=== PATIENT | male | born 1950 | race Two or more races ===

== ENCOUNTER 2020-03-22 11:08 | Inpatient (IN) | payer OTHER, MEDICAID ==
[~2020-03-22] VITALS: Ht 182.9 cm; Wt 64.5 kg
[2020-03-22 14:28] LABS: Basophils # (auto) 0.1 10 ^3/uL (0-0.2); Basophils % (auto) 0.9 % (0.0-2.0); Eosinophils # (auto) 0 10 ^3/uL (0-0.8); Lymphocytes # (auto) 1.3 10 ^3/uL (0.4-5.4); Mean Corpuscular Hgb Conc. 32.8 g/dL (32.0-36.0); Monocytes # (auto) 0.7 10 ^3/uL (0-1.3); Nucleated Red Blood Cells % 0.1 %
[2020-03-22 14:30] LABS: Eosinophils % (auto) 0.6 % (0.0-7.0); Hematocrit 40.5 % (41.0-53.0); Hemoglobin 13.3 g/dL (13.5-17.5); Lymphocytes % (auto) 17.4 % (10.0-50.0); Mean Corpuscular Hemoglobin 25.5 pg (28.0-32.0); Mean Corpuscular Volume 77.6 fL (80.0-100.0); Monocytes % (auto) 8.8 % (0.0-12.0); Neutrophils # (auto) 5.5 10 ^3/uL (1.6-8.6); Neutrophils % (auto) 72.3 % (37.0-80.0); Platelet Count (auto) 295 10^3/uL (140-450); Red Blood Cells 5.22 10^6/uL (4.5-5.90); Red Cell Distribution Width 18.2 % (11.8-14.3); White Blood Cell 7.6 10^3/uL (4.4-10.8)
[2020-03-22 14:49] LABS: Albumin 2.8 g/dL (3.4-5.0); Calcium 8.2 mg/dL (8.5-10.1)
[2020-03-22 14:56] LABS: BUN/Creatinine Ratio 17.5; Bilirubin, Total 1.2 mg/dL (0.2-1.0); Total Protein 8.3 g/dL (6.4-8.2)
[2020-03-22] MEDS ORDERED: AZITHROMYCIN 500MG/ 250ML 250 ML IV ONE (17:15)
[2020-03-22] MEDS ORDERED: IPRATROPIUM BROM 0.5 MG/2.5ML INH SOL NEB ONE (17:15)
[2020-03-22] MEDS ORDERED: BUDESONIDE (INHALATION) 0.5 MG/2 ML NEB NEB ONE (17:15)
[2020-03-22] MEDS ORDERED: NITROGLYCERIN 0.4 MG SL TAB SL PRN ×3 (17:15→19:00)
[2020-03-22] MEDS ORDERED: ENOXAPARIN SOD 40 MG/0.4 ML SYRINGE SC ONE (17:15)
[2020-03-22] MEDS ORDERED: MORPHINE SULF INJ 2 MG/ML SYRINGE 1ML IV PRN ×3 (17:15→18:45)
[2020-03-22] MEDS ORDERED: OMEP-434 PO (17:30)
[2020-03-22] MEDS ORDERED: ACET-1304 PO (17:30)
[2020-03-22] MEDS ORDERED: methylPREDNISolone SOD SUCC 125 MG/2 ML VL IV ONE (18:45)
[2020-03-22] MEDS ORDERED: ONDANSETRON HCL 4 MG/2 ML VIAL IV PRN ×2 (18:45→19:00)
[2020-03-22] MEDS ORDERED: PNEUMOCOCCAL VACC POLYS 25 MCG/0.5 ML VIAL IM ONE (18:45)
[2020-03-22] MEDS ORDERED: ACETAMINOPHEN 325 MG TAB PO PRN (18:45)
[2020-03-22] MEDS ORDERED: DOCUSATE SOD 100 MG CAP PO PRN (18:45)
[2020-03-22] MEDS ORDERED: SODIUM CHLORIDE 0.9% 1,000 ML IV SCH (18:45)
[2020-03-22] MEDS ORDERED: HYDROcodone-ACET 5/325MG TAB PO PRN (18:45)
[2020-03-22] MEDS ORDERED: INFLUENZA QUAD 2020-2021 0.5 ML SYRG IM ONE (18:45)
[2020-03-22] MEDS ORDERED: LORazepam 0.5 MG TAB PO PRN ×2 (18:45→19:00)
[2020-03-22] MEDS ORDERED: FUROSEMIDE 100 MG/10ML VIAL IV ONE (19:00)
[2020-03-22] MEDS ORDERED: ALUM & MAG HYDROX-SIMETH LIQ(MAALOX) 30 ML PO ONE (19:00)
[2020-03-22] MEDS ORDERED: MORPHINE SULFATE 4 MG/ML SYR/VIAL IV PRN (19:00)
[2020-03-22 19:06] VITALS: BP 112/75
[2020-03-22 20:04] LABS: INR 1.23 (0.9-1.15); Partial Thromboplastin Time 32.7 sec (23.0-31.2)
[2020-03-22 20:15] LABS: Cholesterol 122 mg/dL (< 200); HDL Cholesterol 41 mg/dL (40-59); LDL Cholesterol 79 mg/dL (< 100); Triglycerides 65 mg/dL (< 150)
[2020-03-22 20:57] LABS: Urine Bacteria FEW /hpf (None Seen); Urine Blood Negative /uL (Negative); Urine Specific Gravity 1.022 (1.001-1.035); Urine WBC <1 /hpf (0 - 3)
[2020-03-22 21:09] LABS: Alcohol, Urine < 3.0 mg/dL (0-10); Amphetamine Screen, Urine NEGATIVE (NEGATIVE); Barbiturate Scree,Urine NEGATIVE (NEGATIVE); Benzodiazephine Screen, Urine NEGATIVE (NEGATIVE); Cannabinoid Screen, Urine NEGATIVE (NEGATIVE); Cocaine Screen, Urine NEGATIVE (NEGATIVE); Opiate Scree,Urine NEGATIVE (NEGATIVE); Phencyclidine Screen, Urine NEGATIVE (NEGATIVE)
[2020-03-22] MEDS ORDERED: IPRATROPIUM BROM 0.5 MG/2.5ML INH SOL NEB SCH (22:00)
[2020-03-22] MEDS: BUDESONIDE (INHALATION) 0.5 MG/2 ML NEB NEB SCH (22:00)
[2020-03-22] MEDS: CARVEDILOL 3.125 MG TAB PO SCH (22:11)
[2020-03-22] MEDS: ATORVASTATIN 20 MG TAB PO SCH (22:12)
[2020-03-23] MEDS: FUROSEMIDE 40 MG/4 ML VIAL IV SCH ×2 (06:00→18:00)
[2020-03-23 07:02] LABS: Albumin 2.6 g/dL (3.4-5.0); Calcium 8.4 mg/dL (8.5-10.1)
[2020-03-23 07:05] LABS: BUN/Creatinine Ratio 20.4; Bilirubin, Total 1.2 mg/dL (0.2-1.0); Total Protein 7.9 g/dL (6.4-8.2)
[2020-03-23] MEDS ORDERED: ENOXAPARIN SOD 40 MG/0.4 ML SYRINGE SC SCH (10:00)
[2020-03-23] MEDS: LISINOPRIL 5 MG TAB PO SCH (10:00)
[2020-03-23] MEDS: BUDESONIDE (INHALATION) 0.5 MG/2 ML NEB NEB SCH ×2 (10:00→19:56)
[2020-03-23] MEDS: CARVEDILOL 3.125 MG TAB PO SCH ×2 (10:00→21:41)
[2020-03-23] MEDS: levoFLOXacin 500MG 100 ML IV SCH (10:04)
[2020-03-23] MEDS: ASPirin 81 mg TAB PO SCH (10:05)
[2020-03-23] MEDS: ENOXAPARIN SOD 40 MG/0.4 ML SYRINGE SC SCH (10:06)
[2020-03-23 16:49] VITALS: BP 92/59
--- NOTE | 2020-03-23 19:45 | NUR ---
assumed care, pt. awake, alert and oriented, no c/o pain, not in distress.
[2020-03-23] MEDS: IPRATROPIUM BROM 0.5 MG/2.5ML INH SOL NEB PRN (19:56)
[2020-03-23] MEDS: ATORVASTATIN 20 MG TAB PO SCH (21:41)
[2020-03-23] MEDS: ALUM & MAG HYDROX-SIMETH LIQ(MAALOX) 30 ML PO PRN (21:50)
[2020-03-23 22:00] VITALS: BP 92/66
[2020-03-24 05:00] VITALS: BP 92/64
[2020-03-24] MEDS: FUROSEMIDE 40 MG/4 ML VIAL IV SCH ×2 (05:37→18:00)
[2020-03-24] MEDS: BUDESONIDE (INHALATION) 0.5 MG/2 ML NEB NEB SCH ×2 (06:26→19:30)
[2020-03-24 06:39] LABS: Albumin 2.6 g/dL (3.4-5.0); Calcium 8.6 mg/dL (8.5-10.1); Potassium 4.5 mmol/L (3.5-5.1)
[2020-03-24 06:43] LABS: Bilirubin, Total 0.9 mg/dL (0.2-1.0); Total Protein 7.6 g/dL (6.4-8.2)
[2020-03-24 06:47] LABS: Basophils # (auto) 0 10 ^3/uL (0-0.2); Eosinophils # (auto) 0 10 ^3/uL (0-0.8); Folate (Folic Acid) 10.88 ng/mL (5.38-24); Hemoglobin 13.1 g/dL (13.5-17.5); Lymphocytes # (auto) 1.1 10 ^3/uL (0.4-5.4)
[2020-03-24 06:51] LABS: Hematocrit 41.7 % (41.0-53.0); Lymphocytes % (auto) 7.5 % (10.0-50.0); Mean Corpuscular Hemoglobin 24.5 pg (28.0-32.0); Mean Corpuscular Hgb Conc. 31.5 g/dL (32.0-36.0); Mean Corpuscular Volume 77.7 fL (80.0-100.0); Monocytes # (auto) 0.9 10 ^3/uL (0-1.3); Monocytes % (auto) 6.1 % (0.0-12.0); Neutrophils # (auto) 12.7 10 ^3/uL (1.6-8.6); Neutrophils % (auto) 86.4 % (37.0-80.0); Platelet Count (auto) 322 10^3/uL (140-450); Red Blood Cells 5.36 10^6/uL (4.5-5.90); Red Cell Distribution Width 18.2 % (11.8-14.3); White Blood Cell 14.7 10^3/uL (4.4-10.8)
--- NOTE | 2020-03-24 08:00 | NUR ---
Opening Shift Note Assumed care of patient, awake and alert.Patient on 2L oxygen via NC, breath sounds even and unlabored. No S/S of distress/SOB or pain. Instructed on POC and to call for assist PRN. Bed at lowest locked position and call light withinreach. Will continue to monitor for changes Q1hr and PRN.
[2020-03-24 09:00] VITALS: BP 98/62
[2020-03-24] MEDS: levoFLOXacin 500MG 100 ML IV SCH (10:00)
[2020-03-24] MEDS: ASPirin 81 mg TAB PO SCH (10:00)
[2020-03-24] MEDS: methylPREDNISolone SOD SUCC 40 MG/ML VL IV SCH (10:00)
[2020-03-24] MEDS: LISINOPRIL 5 MG TAB PO SCH (10:00)
[2020-03-24] MEDS: CARVEDILOL 3.125 MG TAB PO SCH ×2 (10:00→22:04)
[2020-03-24] MEDS ORDERED: AZITHROMYCIN 500MG/ 250ML 250 ML IV SCH (10:00)
[2020-03-24] MEDS: ENOXAPARIN SOD 40 MG/0.4 ML SYRINGE SC SCH (10:00)
--- NOTE | 2020-03-24 10:04 | NUR ---
Radiology per Radiologist, report shows strong probability for pulmonary embolism. paged Hospitalist. awaiting call back.
--- NOTE | 2020-03-24 10:13 | NUR ---
updated patient's daughter after password was provided.
--- NOTE | 2020-03-24 10:57 | NUR ---
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
[2020-03-24] MEDS ORDERED: fentaNYL CITRATE 100 MCG/2 ML VL IV ONE (11:15)
[2020-03-24] MEDS ORDERED: MIDAZOLAM HCL 1MG/1ML-2 ML VIAL IV ONE (11:15)
[2020-03-24] MEDS ORDERED: LIDOCAINE VISCOUS 2% 15ML UD PO ONE (11:15)
[2020-03-24] MEDS ORDERED: ONDANSETRON HCL 4 MG/2 ML VIAL IV ONE (12:00)
--- NOTE | 2020-03-24 12:12 | NUR ---
D/C Planning Per social service for home oxygen at 3 l/min. Faxed clinical information to [facility] and [facility]. Per Amy with [facility] oxygen portable to be deliver to bedside between 11:30am-15:00 and concentrate oxygen to home. Obtain authorization from [facility] [id number].
--- NOTE | 2020-03-24 13:47 | NUR ---
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 NO SIGNS OF DISTRESS, SOB OR PAIN. BED IN LOWEST POSITION, CALL LIGHT WITHIN REACH.
--- NOTE | 2020-03-24 13:50 | NUR ---
Oxygen tank patients oxygen tank delivered to room.
[2020-03-24] MEDS: ALUM & MAG HYDROX-SIMETH LIQ(MAALOX) 30 ML PO PRN ×2 (14:00→22:11)
--- NOTE | 2020-03-24 14:21 | NUR ---
Nutrition Assessment/Consult Notes Please refer to link for full assessment notes. Est Energy needs: 8824-2825 kcals (20-23 kcal/kgBW) Est Protein needs: 81-90 gms/day (1.0-1.1 gm/kgBW) Will continue to monitor and reassess prn. Addendum: 03/24/20 at [address] Amended: Links added.
--- NOTE | 2020-03-24 15:30 | NUR ---
Dr. Arellano at bedside.
[2020-03-24] MEDS ORDERED: IOHEXOL 350 MG/ML 100ML IJ ONE (17:09)
--- NOTE | 2020-03-24 19:17 | NUR ---
Closing note Patient is comfortably resting in bed, no s/s of distress noted/stated, patient on 2L NC and breath sounds even and unlabored.Bed at lowest locked position and call light within reach. Care endorsed to DARRELL Smith.
--- NOTE | 2020-03-24 19:30 | NUR ---
Opening Shift Note Assumed care of patient, awake and alert. No S/S of distress/SOB or pain. Instructed on POC and to call for assist PRN, will continue to monitor for changes Q1hr and PRN.
[2020-03-24 20:00] VITALS: BP 114/76
[2020-03-24] MEDS ORDERED: ENOXAPARIN SOD 60 MG/0.6 ML SYRINGE SC SCH (22:00)
[2020-03-24] MEDS: ENOXAPARIN SOD 60 MG/0.6 ML SYRINGE SC SCH (22:04)
[2020-03-24] MEDS: ATORVASTATIN 20 MG TAB PO SCH (22:04)
[2020-03-25] MEDS: FUROSEMIDE 40 MG/4 ML VIAL IV SCH ×2 (06:30→18:00)
[2020-03-25 07:08] LABS: Basophils # (auto) 0 10 ^3/uL (0-0.2); Eosinophils # (auto) 0 10 ^3/uL (0-0.8); Mean Corpuscular Volume 78.1 fL (80.0-100.0); Monocytes # (auto) 0.7 10 ^3/uL (0-1.3); Nucleated Red Blood Cells % 0.1 %; Red Cell Distribution Width 18.4 % (11.8-14.3)
[2020-03-25 07:12] LABS: Basophils % (auto) 0.1 % (0.0-2.0); Hematocrit 43.2 % (41.0-53.0); Hemoglobin 13.8 g/dL (13.5-17.5); Lymphocytes # (auto) 1.4 10 ^3/uL (0.4-5.4); Lymphocytes % (auto) 11.4 % (10.0-50.0); Monocytes % (auto) 5.6 % (0.0-12.0); Neutrophils # (auto) 10.4 10 ^3/uL (1.6-8.6); Neutrophils % (auto) 82.9 % (37.0-80.0); Platelet Count (auto) 335 10^3/uL (140-450); Red Blood Cells 5.53 10^6/uL (4.5-5.90); White Blood Cell 12.6 10^3/uL (4.4-10.8)
[2020-03-25 07:27] LABS: Potassium 3.9 mmol/L (3.5-5.1)
[2020-03-25 07:46] LABS: BUN/Creatinine Ratio 31.1; Calcium 8.7 mg/dL (8.5-10.1)
[2020-03-25 08:00] VITALS: BP 112/68
[2020-03-25] MEDS: LISINOPRIL 5 MG TAB PO SCH (08:45)
[2020-03-25 09:04] VITALS: BP 99/67
[2020-03-25] MEDS: methylPREDNISolone SOD SUCC 40 MG/ML VL IV SCH (09:49)
[2020-03-25] MEDS: ENOXAPARIN SOD 60 MG/0.6 ML SYRINGE SC SCH ×2 (09:50→22:02)
[2020-03-25] MEDS: ASPirin 81 mg TAB PO SCH (09:50)
[2020-03-25] MEDS: CARVEDILOL 3.125 MG TAB PO SCH ×2 (09:50→22:03)
[2020-03-25] MEDS: levoFLOXacin 500MG 100 ML IV SCH (09:51)
[2020-03-25] MEDS: IPRATROPIUM BROM 0.5 MG/2.5ML INH SOL NEB PRN ×2 (10:55→19:21)
[2020-03-25] MEDS: BUDESONIDE (INHALATION) 0.5 MG/2 ML NEB NEB SCH ×2 (10:55→19:22)
[2020-03-25 13:00] VITALS: BP 94/63
[2020-03-25] MEDS: ALUM & MAG HYDROX-SIMETH LIQ(MAALOX) 30 ML PO PRN ×2 (14:00→19:21)
[2020-03-25 16:39] VITALS: BP 88/59
[2020-03-25 20:00] VITALS: BP 102/65
[2020-03-25 21:29] VITALS: BP 94/63
[2020-03-25] MEDS: ATORVASTATIN 20 MG TAB PO SCH (22:02)
[2020-03-26] MEDS: FUROSEMIDE 40 MG/4 ML VIAL IV SCH ×2 (06:25→18:30)
[2020-03-26 08:06] VITALS: BP 106/71
[2020-03-26] MEDS: BUDESONIDE (INHALATION) 0.5 MG/2 ML NEB NEB SCH ×2 (09:54→19:11)
[2020-03-26] MEDS: ASPirin 81 mg TAB PO SCH (10:35)
[2020-03-26] MEDS: methylPREDNISolone SOD SUCC 40 MG/ML VL IV SCH (10:35)
[2020-03-26] MEDS: PANTOPRAZOLE 40 MG TAB PO SCH (10:36)
[2020-03-26] MEDS: CARVEDILOL 3.125 MG TAB PO SCH ×2 (10:38→22:14)
[2020-03-26] MEDS: LISINOPRIL 5 MG TAB PO SCH (10:39)
[2020-03-26] MEDS: ENOXAPARIN SOD 60 MG/0.6 ML SYRINGE SC SCH ×2 (10:39→22:14)
[2020-03-26] MEDS: levoFLOXacin 500MG 100 ML IV SCH (10:41)
[2020-03-26 12:20] VITALS: BP 103/69
[2020-03-26] MEDS: ALUM & MAG HYDROX-SIMETH LIQ(MAALOX) 30 ML PO PRN (12:42)
[2020-03-26] MEDS: IPRATROPIUM BROM 0.5 MG/2.5ML INH SOL NEB PRN (19:11)
--- NOTE | 2020-03-26 19:30 | NUR ---
CHANGE OF SHIFT REPORT GIVEN TO SPOOLER RUBBER STRAND RN. PT STABLE AT THIS TIME.
[2020-03-26 20:00] VITALS: BP 97/62
[2020-03-26] MEDS: ATORVASTATIN 20 MG TAB PO SCH (22:14)
[2020-03-27] MEDS: FUROSEMIDE 40 MG/4 ML VIAL IV SCH ×2 (06:00→18:30)
--- NOTE | 2020-03-27 07:00 | NUR ---
Opening Shift Note Assumed care of patient, awake and alert. A/O X 4. No S/S of distress/SOB or pain. Patient on 2L NC. Primarily Turkmen speaking but understands enough Slovenian to follow commands and answer basic questions. Instructed on POC including construction laborer procedure scheduled for this morning and to call for assist PRN. Patient verbalized understanding. Safety measure in place and the call light is within reach of the patient. Will continue to monitor for changes Q1hr and PRN.
[2020-03-27 07:24] LABS: Basophils # (auto) 0 10 ^3/uL (0-0.2); Basophils % (auto) 0.2 % (0.0-2.0); Eosinophils # (auto) 0 10 ^3/uL (0-0.8); Mean Corpuscular Hemoglobin 24.4 pg (28.0-32.0)
[2020-03-27 07:27] LABS: Hematocrit 43.1 % (41.0-53.0); Hemoglobin 13.6 g/dL (13.5-17.5); Lymphocytes # (auto) 1.6 10 ^3/uL (0.4-5.4); Lymphocytes % (auto) 14.9 % (10.0-50.0); Mean Corpuscular Hgb Conc. 31.7 g/dL (32.0-36.0); Mean Corpuscular Volume 77.1 fL (80.0-100.0); Monocytes % (auto) 8.9 % (0.0-12.0); Neutrophils # (auto) 8.3 10 ^3/uL (1.6-8.6); Nucleated Red Blood Cells % 0.1 %; Platelet Count (auto) 315 10^3/uL (140-450); Red Blood Cells 5.59 10^6/uL (4.5-5.90); Red Cell Distribution Width 17.7 % (11.8-14.3); White Blood Cell 10.9 10^3/uL (4.4-10.8)
[2020-03-27 07:36] LABS: INR 1.14 (0.9-1.15); Partial Thromboplastin Time 31.3 sec (23.0-31.2)
[2020-03-27 07:50] LABS: Potassium 4.1 mmol/L (3.5-5.1)
[2020-03-27 08:02] LABS: BUN/Creatinine Ratio 37.3; Calcium 8.4 mg/dL (8.5-10.1)
[2020-03-27 08:23] VITALS: BP 104/62
[2020-03-27] MEDS: LISINOPRIL 5 MG TAB PO SCH (08:30)
[2020-03-27] MEDS: ASPirin 81 mg TAB PO SCH (08:30)
[2020-03-27] MEDS: methylPREDNISolone SOD SUCC 40 MG/ML VL IV SCH (08:30)
[2020-03-27] MEDS: ENOXAPARIN SOD 60 MG/0.6 ML SYRINGE SC SCH (08:30)
[2020-03-27] MEDS: PANTOPRAZOLE 40 MG TAB PO SCH (08:30)
[2020-03-27] MEDS: CARVEDILOL 3.125 MG TAB PO SCH ×2 (08:31→21:49)
--- NOTE | 2020-03-27 08:35 | NUR ---
Medication withheld Lovenox held for senior cytogenetics laboratory director procedure. Carvedilol and lisinopril held for low blood pressure. BP 107/55. Will endorse to senior cytogenetics laboratory director and physician.
[2020-03-27] MEDS ORDERED: LIDOCAINE 2%HCL (LOCAL ANESTH.) INJ 20ML MDV ONE (08:41)
[2020-03-27] MEDS ORDERED: IOHEXOL 350 MG/ML 100ML IJ ONE (08:41)
[2020-03-27 09:00] VITALS: BP 104/62
[2020-03-27] MEDS ORDERED: SODIUM CHL 0.9% 0 ML ONE (09:12)
[2020-03-27] MEDS ORDERED: ANGIOMAX 250 MG VIAL IV ONE (09:12)
[2020-03-27] MEDS ORDERED: fentaNYL CITRATE 100 MCG/2 ML VL ONE (09:12)
[2020-03-27] MEDS ORDERED: MIDAZOLAM HCL 1MG/1ML-2 ML VIAL ONE (09:12)
[2020-03-27] MEDS ORDERED: HEPARIN SODIUM (PORCINE) 5000 UNITS/ML 1ML VIAL ONE (09:16)
[2020-03-27] MEDS ORDERED: VERAPAMIL 2.5MG/ML INJ 2ML VIAL IV ONE (09:17)
[2020-03-27] MEDS ORDERED: diphenhdrAMINE HCL 50 MG/1 ML VL ONE (09:26)
--- NOTE | 2020-03-27 10:28 | NUR ---
Patient off the floor Patient in the supervisor labor gang for procedure. Addendum: 03/27/20 at 1029 by Haylie Larry RN RN Amended: Links added.
[2020-03-27] MEDS: BUDESONIDE (INHALATION) 0.5 MG/2 ML NEB NEB SCH ×2 (10:50→22:56)
--- NOTE | 2020-03-27 11:05 | NUR ---
Dr. Arellano at bedside Dr. Arellano at bedside at the time the patient returned to the floor from lab head. Discussed POC with this nurse. Wants to keep patient overnight. Informed on procedure, and hypotensive BP.
[2020-03-27] MEDS: levoFLOXacin 500MG 100 ML IV SCH (11:30)
--- NOTE | 2020-03-27 11:30 | NUR ---
Dr. Duarte at bedside Dr. Duarte at bedside assessing the patient. Would like to wean off the O2 and titrate down to 2L some time after the patient can sit up. Will carry out orders accordingly.
--- NOTE | 2020-03-27 12:54 | NUR ---
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 per records pt to have hearth cath today. pt was NPO for procedure Est Energy needs: 1958-0140 kcals (20-23 kcal/kgBW), Est Protein needs: 81-90 gms/day (1.0-1.1 gm/kgBW). Will continue to monitor and reassess prn. LABS: BUN 41 H ALB 2.6 L CA 8.4 L GI: Pt had 1 BM today per RN doc BS: 22 low risk. Refer to wound assessment report for further details PES: 1) Inadequate oral intake aeb pt with 0% PO intake r/t pt is with a poor appetite 2) Underweight aeb BMI of 18.2 kg/m2 r/t energy intake is less than energy needs Comments Will continue to monitor PO status, skin status, pertinent labs and weight trends. Will f/u in 3-5 days 1) resume diet as medically feasible. 2) Consider supplemental nutrition support Ensure Enlive TID. 3) Continue current plan of care
[2020-03-27 13:00] VITALS: BP 93/65
[2020-03-27] MEDS ORDERED: ALBUTEROL SULF HFA 90MCG INH 200DOSE IN SCH (14:00)
[2020-03-27] MEDS: ALBUTEROL SULF 2.5 MG/0.5ML(0.5%) NEB SOLN NEB SCH ×2 (15:21→22:56)
--- NOTE | 2020-03-27 15:54 | NUR ---
Spoke with family about bringing O2 Spoke with family about bringing an oxygen tank with them to picking machine operator the patient due to the tank at bedside being empty. Spoke with daughter and she agreed to bring one at the time of picking up her father. Will endorse to overnight cashier.
[2020-03-27 17:03] VITALS: BP 90/53
--- NOTE | 2020-03-27 18:31 | NUR ---
Dr. Mcclellan called Dr. Mcclellan called regarding patient's reinforced groin dressings. Border outlined. Fluid challenge ordered, 500 mL 0.9% NS in 30 minutes and manual pressure. Ordered to hold 1800 Lasix and 2200 Eliquis.
[2020-03-27] MEDS: APIXABAN 5 MG TAB PO SCH (18:40)
[2020-03-27 20:00] VITALS: BP 90/53
[2020-03-27 21:40] VITALS: BP 99/62
--- NOTE | 2020-03-27 21:45 | NUR ---
Medication withheld Carvedilol withheld for low BP 88/59. Hospitalist called and stated that he is comfortable with a MAP equal or >60. Map 68.
[2020-03-27] MEDS: ATORVASTATIN 20 MG TAB PO SCH (22:00)
[2020-03-27] MEDS: IPRATROPIUM BROM 0.5 MG/2.5ML INH SOL NEB PRN (22:56)
--- NOTE | 2020-03-27 23:10 | NUR ---
Opening Shift Note Received report from tad Stallings RN. Assumed care of patient resting in bed with eyes closed. No S/S of distress/SOB or pain. Instructed on POC and to call for assist PRN, will continue to monitor for changes Q1hr and PRN. Bed placed in lowest position, bed alarm turned on and call light within reach.
[2020-03-28 05:00] VITALS: BP 104/68
[2020-03-28] MEDS: ALBUTEROL SULF 2.5 MG/0.5ML(0.5%) NEB SOLN NEB SCH ×2 (05:51→14:00)
[2020-03-28] MEDS: BUDESONIDE (INHALATION) 0.5 MG/2 ML NEB NEB SCH (05:51)
[2020-03-28] MEDS: IPRATROPIUM BROM 0.5 MG/2.5ML INH SOL NEB PRN ×3 (05:51→14:00)
[2020-03-28] MEDS: FUROSEMIDE 40 MG/4 ML VIAL IV SCH (06:09)
[2020-03-28 06:21] LABS: Basophils # (auto) 0 10 ^3/uL (0-0.2); Basophils % (auto) 0.1 % (0.0-2.0); Eosinophils # (auto) 0 10 ^3/uL (0-0.8); Eosinophils % (auto) 0.1 % (0.0-7.0); Hematocrit 42.1 % (41.0-53.0); Hemoglobin 13.2 g/dL (13.5-17.5); Mean Corpuscular Hgb Conc. 31.4 g/dL (32.0-36.0); Nucleated Red Blood Cells % 0.3 %
[2020-03-28 06:25] LABS: Lymphocytes # (auto) 1.9 10 ^3/uL (0.4-5.4); Lymphocytes % (auto) 17.5 % (10.0-50.0); Mean Corpuscular Hemoglobin 24.2 pg (28.0-32.0); Mean Corpuscular Volume 77.3 fL (80.0-100.0); Monocytes % (auto) 9.2 % (0.0-12.0); Neutrophils # (auto) 8.1 10 ^3/uL (1.6-8.6); Neutrophils % (auto) 73.1 % (37.0-80.0); Platelet Count (auto) 260 10^3/uL (140-450); Red Blood Cells 5.45 10^6/uL (4.5-5.90)
--- NOTE | 2020-03-28 06:30 | NUR ---
Dressing CDI Dressing to right groin is clean dry and intact. Patient walked to the bathroom to do bowel movement, no distress noted and patient denies pain.
[2020-03-28 06:59] LABS: Potassium 4.6 mmol/L (3.5-5.1)
[2020-03-28 07:13] LABS: BUN/Creatinine Ratio 34.8; Calcium 7.9 mg/dL (8.5-10.1)
--- NOTE | 2020-03-28 07:40 | NUR ---
Opening Note Assumed pt care from NOC RN. Pt is a/ox4 with no s/s of distress or SOB. Pt is currently sitting upright in bed on 2L via NC with no s/s of distress or SOB. [facility] access site is clean, dry and intact. Discussed POC with pt, pt verbalized understanding. Safety measures maintained with call light within reach, bed in lowest position and side rails up. Will continue to monitor for changes.
[2020-03-28 08:00] VITALS: BP 101/65
[2020-03-28] MEDS: APIXABAN 5 MG TAB PO SCH (08:22)
[2020-03-28] MEDS: ASPirin 81 mg TAB PO SCH (08:22)
[2020-03-28] MEDS: levoFLOXacin 500MG 100 ML IV SCH (08:22)
[2020-03-28] MEDS: PANTOPRAZOLE 40 MG TAB PO SCH (08:22)
[2020-03-28] MEDS: CARVEDILOL 3.125 MG TAB PO SCH (08:28)
[2020-03-28] MEDS: LISINOPRIL 5 MG TAB PO SCH (08:28)
[2020-03-28] MEDS ORDERED: predniSONE 20 MG TAB PO SCH (10:00)
--- NOTE | 2020-03-28 10:14 | NUR ---
Dr Arellano at Bedside MD to see pt. Plans to d/c pt today. Pending social service home health. requests that pt f/u with him in clinic within 1 week. Will implement and continue to monitor.
[2020-03-28] MEDS ORDERED: CAR3125T PO (10:38)
[2020-03-28] MEDS ORDERED: ASPI81CH43 PO (10:38)
[2020-03-28] MEDS ORDERED: LISI2.5T47 PO (10:38)
[2020-03-28] MEDS ORDERED: ATOR20TA50 PO (10:38)
[2020-03-28] MEDS ORDERED: APIX5TAB PO (10:38)
[2020-03-28 12:00] VITALS: BP 99/55
[2020-03-28 14:34] VITALS: BP 99/55
--- NOTE | 2020-03-28 14:39 | NUR ---
SS consult for home health for PT and medication management. [facility] (contracted vendor with [facility]). Received auth number from [facility] of [id number] for services. Confirmed with [place] from [facility] ([phone])and pt accepted to start services 24-48 hours post discharge. No further SS concerns at this time.
--- NOTE | 2020-03-28 15:06 | NUR ---
IV and Tele 64 D/C'ed IV to pt's L FA d/c'ed. Catheter was removed fully intact, pressure dressing applied to site. Tele 64 sent back to ICU. Staff made aware.
--- NOTE | 2020-03-28 16:00 | NUR ---
Pt D/C'ed Off Unit Pt wheeled off unit with all belongings. Education material provided to pt and explained with pt's family member in lobby; all questions were answered. Pt took all belongings including O2 tank. No s/s of distress or SOB.
== END 2020-03-28 16:01 | disposition home health service (06) | DRG 280 ==
LOC: ER 11:08 → TELE 11:09 → TELE-WESTW 03-23 13:00
PROVIDERS: ADMIT Hospitalist; ATTEND Internal Medicine
PROC: B246ZZ4 Ultrasonography of Right and Left Heart, Transesophageal (ICD-10-PCS; 2020-03-24)
PROC: 4A023N8 Measurement of Cardiac Sampling and Pressure, Bilateral, Percutaneous Approach (ICD-10-PCS; principal; 2020-03-27)
PROC: B2111ZZ Fluoroscopy of Multiple Coronary Arteries using Low Osmolar Contrast (ICD-10-PCS; 2020-03-27)
PROC: B2151ZZ Fluoroscopy of Left Heart using Low Osmolar Contrast (ICD-10-PCS; 2020-03-27)
DX: I11.0 Hypertensive heart disease with heart failure (principal); I21.A1 Myocardial infarction type 2; J81.0 Acute pulmonary edema; J96.21 Acute and chronic respiratory failure with hypoxia; E43 Unspecified severe protein-calorie malnutrition; J18.9 Pneumonia, unspecified organism; I26.99 Other pulmonary embolism without acute cor pulmonale; I31.3 Pericardial effusion (noninflammatory); Z68.1 Body mass index [BMI] 19.9 or less, adult; Q21.1 Atrial septal defect; Z20.828 Contact with and (suspected) exposure to other viral communicable diseases; Z28.21 Immunization not carried out because of patient refusal; K21.9 Gastro-esophageal reflux disease without esophagitis; D64.9 Anemia, unspecified; I27.20 Pulmonary hypertension, unspecified; J43.9 Emphysema, unspecified; I25.10 Atherosclerotic heart disease of native coronary artery without angina pectoris; F41.9 Anxiety disorder, unspecified; F17.210 Nicotine dependence, cigarettes, uncomplicated; R73.03 Prediabetes; F32.9 Major depressive disorder, single episode, unspecified; I07.1 Rheumatic tricuspid insufficiency; I50.33 Acute on chronic diastolic (congestive) heart failure
CPT/HCPCS: 36415; 36600; 71045; 71250; 71275; 78582; 80048; 80053; 80061; 80307; 81001; 82607; 82746; 82805; 83036; 83605; 83735; 83880; 84443; 84484; 85025; 85379; 85610; 85730; 87040; 87086; 87426; 93005; 93306; 93312; 93970; 94640; 96365; 96366; 96367; 96372; 96375; 99152; 99153; C1751; G0378; J1956; J2250; J2405